=== PATIENT | female | born 1960 | race African-American/Black ===

== ENCOUNTER 2016-09-04 10:37 | Emergency (ER) | payer MEDICARE, MEDICAID ==
[~2016-09-04] VITALS: Ht 157.5 cm; Wt 47.0 kg
[~2016-09-04 10:37] MED LIST: CARI350T PO; DOCU-138 PO; OMEG-13 PO; OMEP20CA4 PO; ONDA8TAB6 PO; OXYC10TA71 PO; OXYC40TA50 PO; VIT D PO; VIT1TABL PO; ZOLP10TA2 PO
[2016-09-04] MEDS ORDERED: SODIUM CHLORIDE 0.9% 1,000 ML IV ONE (11:21)
[2016-09-04] MEDS ORDERED: ONDANSETRON HCL 4MG/2ML VIAL IV STA (11:21)
[2016-09-04] MEDS ORDERED: MORPHINE SULFATE 2 MG/ML CPJ (NOT FOR IM USE) IV ONE (11:30)
[2016-09-04] MEDS ORDERED: MORPHINE SULFATE 4 MG/ML CPJ (NOT FOR IM USE) IV PRN (11:30)
[2016-09-04] MEDS ORDERED: DIPHENHYDRAMINE 50MG/ML VIAL IV ONE (12:00)
[2016-09-04 12:07] LABS: BASOPHILS % 0.5 % (0.0-2.0); EOSINOPHILS % 2.2 % (0.0-5.0); HEMATOCRIT. 39.3 % (36.0-48.0); HEMOGLOBIN. 13.3 g/dL (12.0-16.0); LYMPHOCYTES % 22.2 % (20.0-50.0); MEAN CORPUSCULAR HEMOGLOBIN 30.6 pg (28.0-32.0); MEAN CORPUSCULAR HGB CONC 33.9 g/dL (31.0-37.0); MEAN PLATELET VOLUME 8.1 fl (7.4-10.4); MONOCYTES % 5.8 % (2.0-8.0); NEUTROPHILS % 69.3 % (40.0-76.0); PLATELET 217 x1000/uL (130-400); RED BLOOD CELL COUNT 4.36 mill/uL (4.2-5.4); WHITE BLOOD COUNT 3.8 x1000/uL (4.5-11.0)
[2016-09-04 12:19] LABS: CALCIUM 9.6 mg/dL (8.5-10.1); CHLORIDE 103 mEq/L (98-107); INDEX HEMOLYSI 1 (1-3); INDEX ICTERIC 1 (1-4); INDEX LIPEMIC 1 (1-3); LIPASE 91 IU/L (73-393)
[2016-09-04 12:23] LABS: ALANINE AMINOTRANSFERASE 20 IU/L (13-61); ANION GAP 13; CARBON DIOXIDE 30 mEq/L (21-32); UREA NITROGEN BLOOD 10 mg/dL (7-21)
[2016-09-04 12:26] LABS: eGFR > 60 mL/min (>60)
[2016-09-04 12:52] LABS: CLARITY URINE CLEAR (CLEAR); COLOR URINE YELLOW (YELLOW); GLUCOSE URINE NEGATIVE (NEGATIVE); KETONES URINE NEGATIVE (NEGATIVE); LEUKOCYTE ESTERASE URINE TRACE (NEGATIVE); NITRITE URINE NEGATIVE (NEGATIVE); OCCULT BLOOD URINE NEGATIVE (NEGATIVE); PROTEIN URINE NEGATIVE (NEGATIVE); SPECIFIC GRAVITY URINE 1.004 (1.005-1.030); UROBILINOGEN URINE 0.2 E.U./dL (0.2-1.0)
[2016-09-04 13:08] LABS: RBC URINE NONE SEEN /hpf (0-2); SQUAMOUS EPITHELIAL CELL URINE NONE SEEN /lpf (RARE/1+); WBC URINE 0-2 /hpf (0-2)
[2016-09-04 13:09] LABS: BACTERIA URINE TRACE
[2016-09-04] MEDS ORDERED: SODIUM CHLORIDE 0.9% 10ML VIAL ONE (14:34)
[2016-09-04] MEDS ORDERED: IOHEXOL-300 100 ML BOTTLE ONE (14:34)
[2016-09-04] MEDS ORDERED: ONDANSETRON HCL 4MG/2ML VIAL IV ONE (17:15)
[2016-09-04 18:24] VITALS: BP 132/83
== END 2016-09-04 18:26 | disposition home or self-care (01) ==
LOC: ER 10:41
DX: K29.70 Gastritis, unspecified, without bleeding (principal); K59.00 Constipation, unspecified; E11.9 Type 2 diabetes mellitus without complications; I10 Essential (primary) hypertension; Z86.73 Personal history of transient ischemic attack (TIA), and cerebral infarction without residual deficits; Z90.49 Acquired absence of other specified parts of digestive tract; Z88.0 Allergy status to penicillin; Z88.2 Allergy status to sulfonamides; Z88.1 Allergy status to other antibiotic agents; Z88.5 Allergy status to narcotic agent; Z79.899 Other long term (current) drug therapy
CPT/HCPCS: 36415; 74178; 80053; 81001; 83690; 85025; 96361; 96374; 96375; 96376; 99285; A4216; J1200; J2270; J2405; J7030; Q9967

== ENCOUNTER 2017-06-10 02:50 | Emergency (ER) | payer MEDICARE, MEDICAID ==
[~2017-06-10] VITALS: Ht 157.5 cm; Wt 49.0 kg
[~2017-06-10 02:50] MED LIST changes: +OXYC10TA58 PO; -OXYC10TA71 PO
[2017-06-10] MEDS ORDERED: HYDROCODONE/ACETAMINOPHEN 5/325MG TABLET PO ONE ×2 (06:30→12:15)
[2017-06-10] MEDS ORDERED: ONDANSETRON 4MG ODT PO ONE ×2 (06:30→12:15)
[2017-06-10 13:54] VITALS: BP 123/75
== END 2017-06-10 13:59 | disposition home or self-care (01) ==
LOC: ER 02:50
DX: S09.8XXA Other specified injuries of head, initial encounter (principal); S00.81XA Abrasion of other part of head, initial encounter; S93.402A Sprain of unspecified ligament of left ankle, initial encounter; S89.92XA Unspecified injury of left lower leg, initial encounter; S93.602A Unspecified sprain of left foot, initial encounter; M54.6 Pain in thoracic spine; M54.2 Cervicalgia; I10 Essential (primary) hypertension; Z86.73 Personal history of transient ischemic attack (TIA), and cerebral infarction without residual deficits; Z88.0 Allergy status to penicillin; Z88.2 Allergy status to sulfonamides; Z88.5 Allergy status to narcotic agent; Z98.890 Other specified postprocedural states; Z88.8 Allergy status to other drugs, medicaments and biological substances; Z90.49 Acquired absence of other specified parts of digestive tract; W01.0XXA Fall on same level from slipping, tripping and stumbling without subsequent striking against object, initial encounter; Y93.9 Activity, unspecified; Y92.89 Other specified places as the place of occurrence of the external cause; Y99.8 Other external cause status
CPT/HCPCS: 70450; 70486; 72070; 72110; 72125; 73502; 73562; 73610; 73630; 99284; L1830; Q0162

== ENCOUNTER 2017-09-24 15:42 | Emergency (ER) | payer MEDICARE, MEDICAID ==
[~2017-09-24] VITALS: Ht 162.6 cm; Wt 55.0 kg
[2017-09-24] MEDS ORDERED: HYDROCODONE/ACETAMINOPHEN 10/325MG TABLET PO ONE (18:30)
[2017-09-24] MEDS ORDERED: LIDOCAINE 5% PATCH TOP STA (20:26)
[2017-09-24 23:09] VITALS: BP 105/56
== END 2017-09-24 23:09 | disposition home or self-care (01) ==
LOC: ER 16:08
DX: S16.1XXA Strain of muscle, fascia and tendon at neck level, initial encounter (principal); S39.012A Strain of muscle, fascia and tendon of lower back, initial encounter; F17.200 Nicotine dependence, unspecified, uncomplicated; V43.52XA Car driver injured in collision with other type car in traffic accident, initial encounter; Y93.89 Activity, other specified; Y99.8 Other external cause status; Y92.410 Unspecified street and highway as the place of occurrence of the external cause; Z86.73 Personal history of transient ischemic attack (TIA), and cerebral infarction without residual deficits; Z88.2 Allergy status to sulfonamides; Z88.0 Allergy status to penicillin; Z88.5 Allergy status to narcotic agent; Z98.1 Arthrodesis status; Z90.49 Acquired absence of other specified parts of digestive tract
CPT/HCPCS: 72040; 72100; 73130; 99284

== ENCOUNTER 2018-01-19 20:25 | Emergency (ER) | payer MEDICARE, MEDICAID ==
[~2018-01-19] VITALS: Ht 157.5 cm; Wt 50.0 kg
[~2018-01-19 20:25] MED LIST changes: -CARI350T PO; +S350 PO
[2018-01-19] MEDS ORDERED: HYDROCODONE/ACETAMINOPHEN 5/325MG TABLET PO ONE (22:15)
[2018-01-20 00:35] VITALS: BP 103/63
== END 2018-01-20 00:51 | disposition home or self-care (01) ==
LOC: ER 22:08
DX: S80.12XA Contusion of left lower leg, initial encounter (principal); S80.11XA Contusion of right lower leg, initial encounter; R60.0 Localized edema; M54.30 Sciatica, unspecified side; Z88.0 Allergy status to penicillin; Z88.2 Allergy status to sulfonamides; Z88.1 Allergy status to other antibiotic agents; Z88.5 Allergy status to narcotic agent; Z88.8 Allergy status to other drugs, medicaments and biological substances; Z90.49 Acquired absence of other specified parts of digestive tract; Z79.899 Other long term (current) drug therapy; Z86.73 Personal history of transient ischemic attack (TIA), and cerebral infarction without residual deficits; X58.XXXA Exposure to other specified factors, initial encounter; Y93.89 Activity, other specified; Y92.89 Other specified places as the place of occurrence of the external cause; Y99.8 Other external cause status
CPT/HCPCS: 93970; 99284